=== PATIENT | male | born 1940 | race Caucasian/White ===

== ENCOUNTER 2016-07-18 13:11 | Emergency (ER) | payer OTHER, BC ==
[2016-07-18 13:35] VITALS: BP 148/96; PULSE 88; TEMP 97.9; BMI 21.7
--- NOTE | 2016-07-18 14:08 | PDOC ---
History of Present Illness - General Chief Complaint: Bite Stated Complaint: PCP SENT, DOG BITE WOUND Time Seen by Provider: 07/18/16 13:46 History Source: Patient Exam Limitations: No Limitations - History of Present Illness Initial Comments: 07/18/16 14:16 75 yr male bit by neighbors dog 07/08/16 to left hand. Pt went to urgent care placed on augmenting and the wound was cleaned. Pt is here for a wound check. Pt denies fever, chills, states no pain. no history of DM, HTN liver disease. Severity: Yes: mild Location: reports: hands (left) Past History - Past Medical History Allergies/Adverse Reactions: Allergies Allergy/AdvReac Type Severity Reaction Status Date / Time No Known Allergies Allergy Verified 07/18/16 13:20 Home Medications: Ambulatory Orders Aspirin [ASA] 81 mg PO DAILY 06/18/12 Finasteride [Propecia] 1 mg PO DAILY 06/18/12 Pravastatin Sodium [Pravachol] 10 mg PO HS 06/18/12 Tamsulosin HCl 0.4 mg PO DAILY 06/18/12 DVT: Yes (x 3 bilateral legs) Hypercholesterolemia: Yes - Immunization History Tetanus Status: Less than 5 years TDAP Vaccination: Yes - Psycho/Social/Smoking Cessation Hx Suicidal Ideation: No Smoking Status: Yes Smoking History: Former smoker Have you smoked in the past 12 months: No Number of Cigarettes Smoked Daily: 3 If you are a former smoker, when did you quit?: 1965 Information on smoking cessation initiated: No Review of Systems - Review of Systems Able to Perform ROS?: Yes Is the patient limited Tuvaluan proficient: No Constitutional: No: Symptoms Reported HEENTM: No: Symptoms Reported Respiratory: No: Symptoms reported Cardiac (ROS): No: Symptoms Reported ABD/GI: No: Symptoms Reported : No: Symptoms Reported Musculoskeletal: Yes: Symptoms Reported Integumentary: Yes: Symptoms Reported *Physical Exam - Vital Signs Last Vital Signs Temp Pulse Resp BP Pulse Ox 97.9 F 88 18 148/96 98 07/18/16 13:20 07/18/16 13:20 07/18/16 13:20 07/18/16 13:20 07/18/16 13:20 - Physical Exam General Appearance: Yes: Nourished, Appropriately Dressed HEENT: positive: EOMI, VAMSHI, Normal ENT Inspection, TMs Normal, Pharynx Normal Neck: positive: Supple Respiratory/Chest: positive: Lungs Clear, Normal Breath Sounds Cardiovascular: positive: Regular Rhythm, Regular Rate Gastrointestinal/Abdominal: positive: Normal Bowel Sounds, Soft Extremity: positive: Normal Capillary Refill, Normal Inspection, Normal Range of Motion, Other (left hand with 2.0cm puncture wound in beteween thumb and index finger on the dorsal side. no drainage no redness ). 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, Fully Oriented, Alert, Normal Mood/ Affect Procedures - Additional Procedures Progress: 07/18/16 14:19 wound cleaned with sterile water, bacitracin placed and sterile non stick gauze with cling wrap pt has FROM of all digits, no pain or swelling Medical Decision Making - Medical Decision Making 07/18/16 14:20 cc: left hand puncture wound check s/p dog bite dog is with his neighbor, pt filled out all forms for [facility] at the urgent care and has been in contact with them pt has no fever, no drainage no increase in pain pt has FROM of the hand will re-dress and refer to hand for follow up as needed continue Augmentin pt understands the dc plan and agrees with the care. *DC/Admit/Observation/Transfer Diagnosis at time of Disposition: Visit for wound check - Discharge Dispostion Disposition: HOME Condition at time of disposition: Good - Referrals Referrals: STAFF,NOT ON [Primary Care Provider] - Juan Steinberg MD [Staff Physician] - - Patient Instructions Additional Instructions: keep clean and dry elevate hand and avoid using the hand for stenuous activity change bandage daily apply bacitracin once a day and cover with bandaid until healed if any fever, chills, redness streaking up arm pus drainage or any other concerns follow with or return to ER
== END 2016-07-18 14:16 | disposition home or self-care (01) ==
LOC: JERFT 13:11 → JER 13:11 → JERFT 14:16
DX: Z48.00 Encounter for change or removal of nonsurgical wound dressing (principal)
CPT/HCPCS: 99281-25